=== PATIENT | female | born 1980 | race Caucasian/White ===

== ENCOUNTER → 2017-12-10 13:33 | Outpatient (CLI) | payer OTHER, SELFPAY ==
--- NOTE | 2017-12-10 | DI.ECHO.S_ITS ---
[facility] +---------+ : : [address] : [place] : : : : [id number] : : : : Phone: [phone]---------+ Echocardiogram Report + + :Name: MARINE DILLON Study Date: 12/10/2017 Height: 69 in : :[facility] Weight: 246 lb : : Gender: Female BSA: 2.3 m2 : :: 1980 Age: 36 yrs BP: 144/80 mmHg: :Reason For Study: Palpitations : :History: PFO closure : :Ordering Physician: : :Chris Almonte Performed By: Marsha Shen : + + Interpretation Summary Left ventricular size is at the upper limits of normal. The ejection fraction is estimated to be 50-55%. There are no obvious focal wall motion abnormalities noted but poor endocardial definition reduces the sensitivity for the detection of such. Borderline left atrial enlargement. Injection of contrast with valsalva documented an interatrial shunt. There is no significant valvular heart disease. Procedure: A two-dimensional transthoracic echocardiogram with color flow and Doppler was performed. A saline contrast injection was performed to assess for cardiac shunting. The study quality was technically adequate. There is no prior echocardiogram noted for this patient. The patient was in normal sinus rhythm during the exam. The patient had occasional PACs during the exam. Left Ventricle: The left ventricle is normal in size, wall thickness, and systolic function without any focal wall motion abnormalities. Left ventricular size is at the upper limits of normal. The ejection fraction is estimated to be 50-55%. There are no obvious focal wall motion abnormalities noted but poor endocardial definition reduces the sensitivity for the detection of such. Assessment of diastolic parameters indicates normal left ventricular diastolic function and normal filling pressures. Right Ventricle: The right ventricle is normal in size and function. Atria: Borderline left atrial enlargement. Right atrial size is normal. Injection of contrast with valsalva documented an interatrial shunt. Mitral Valve: The mitral valve is normal in structure and function. There is no mitral regurgitation noted. Aortic Valve: The aortic valve opens well. No aortic regurgitation is present. Tricuspid Valve: The tricuspid valve is normal in structure and function. There is a trace or physiologic amount of tricuspid regurgitation. Pulmonary artery pressures cannot be estimated because of the lack of a measurable TR jet velocity. Pulmonic Valve: The pulmonic valve is not well seen, but is grossly normal. There is a trace or physiologic amount of pulmonic regurgitation. Great Vessels: The aortic root is normal size. The ascending aorta is normal in size. The aortic arch is normal in size. The IVC is of normal diameter and collapses greater than 50% with a sniff. This suggests a low right atrial pressure of 3 mm Hg. Pericardium/ Pleura There is no pericardial effusion. MMode/2D Measurements & Calculations LVIDd: 5.6 cm LVOT diam: 2.0 cm LVIDs: 3.8 cm Ao root diam: 3.5 cm FS: 32.1 % asc Aorta Diam: 3.3 cm EPSS: 0.48 cm Ao Arch Diam (Prox Trans): 2.8 cm IVSd: 0.65 cm LVPWd: 0.67 cm LV fernández. diameter/BSA (cm/m^2): 2.5 LV sys. diameter/BSA (cm/m^2): 1.7 LA A2 area: 22.3 cm2 RA long axis: 4.9 cm LA A4 area: 23.2 cm2 RA area: 16.1 cm2 LA length (vol): 5.9 cm RA vol: 44.9 ml LA vol: 74.5 ml RA : 19.9 ml/m2 LA vol index: 33.0 ml/m2 IVC diam: 2.0 cm RVD1 (basal): 4.0 cm RVD2 (mid): 2.6 cm TAPSE: 2.6 cm Doppler Measurements & Calculations Ao V2 max: 146.1 cm/sec LVOT Max Reggie: 95.0 cm/sec Ao V2 mean: 99.6 cm/sec LV V1 max P.6 mmHg Ao max P.5 mmHg LV V1 VTI: 20.2 cm Ao mean P.5 mmHg HAYLEY(I,D): 2.0 cm2 Ao V2 VTI: 30.4 cm HAYLEY(V,D): 1.9 cm2 sev ratio: 0.66 HAYLEY indexed to BSA (cm^2/m^2): 0.88 MV E max reggie: 82.8 cm/sec PA V2 max: 114.7 cm/sec MV A max reggie: 46.5 cm/sec PA V2 mean: 69.3 cm/sec MV E/A: 1.8 PA mean P.3 mmHg Med Peak E' Reggie: 9.4 cm/sec PA Accel Time: 0.12 sec E/E' med: 8.8 Lat Peak E' Reggie: 15.4 cm/sec E/E' lat: 5.4 E/e' average: 7.1 MV dec time: 0.21 sec MV P1/2t: 62.4 msec MV /2t max reggie: 82.9 cm/sec MVA(2t): 3.5 cm2 Reading Physician:08:35 AM
== END ==
PROVIDERS: Visit Provider Internal Medicine Cardiovascular Disease
DX: R00.2 Palpitations (principal)
CPT/HCPCS: 93306